=== PATIENT | female | born 1975 | race Caucasian/White ===

== ENCOUNTER → 2022-09-26 | Outpatient (CLI) | payer OTHER ==
--- NOTE | 2022-09-26 12:03 | XR ---
EXAMINATION TYPE: XR shoulder complete RT DATE OF EXAM: 09/26/2022 COMPARISON: MRI right shoulder 10/25/2012. HISTORY: Pain TECHNIQUE: The right shoulder was examined in AP, internally rotated, and scapular Y projections. COMPARISON: None. FINDINGS: No acute fracture or dislocation. Soft tissues within normal limits. Multiple calcified gra nulomas are demonstrated within the visualized lung. IMPRESSION: There is no acute fracture or dislocation seen.
== END | disposition home or self-care (01) ==
LOC: RADXRMAIN 11:45
PROVIDERS: ATTEND Nurse Practitioner Family
DX: M25.511 Pain in right shoulder (principal)